=== PATIENT | female | born 1985 | race American Indian/Alaskan Native ===

== ENCOUNTER 2021-05-25 12:15 | Emergency (ER) | payer MEDICARE ==
[2021-05-25] MEDS ORDERED: KETOROLAC 60 MG/2 ML INJ IM ONE (17:09)
[2021-05-25] MEDS ORDERED: ONDANSETRON 4 MG ODT TAB PO ONE (17:09)
[2021-05-25] MEDS ORDERED: MORPHINE 4 MG/1 ML INJ IM ONE (17:09)
--- NOTE | 2021-05-25 17:10 | Emergency Department Report ---
ED Back Pain/Injury HPI - General Chief Complaint: Back Pain/Injury Stated Complaint: BACK PAIN Time Seen by Provider: 05/25/21 16:58 Source: patient Limitations: No Limitations - History of Present Illness Initial Comments: 36-year-old -[place] female, morbidly obese with a past medical history of chronic low back pain, sciatica, diabetes, asthma, bipolar disorder, and PE diagnosed about 5 years ago, currently not compliant with his Xarelto x5 months presents to the ER today with complaints of a flareup of her low back pain. Patient states that she was cleaning the bathroom this morning, and after clean the bathroom she started having increasing low back pain. She describes the pain as a "lightning jaquan which shoots down into her both legs. She states that the pain is worse with any movement and with palpation. She reports difficulty walking secondary to the pain but no lower extremity weakness, no lower extremity numbness, tingling, saddle anesthesia, bowel or bladder incontinence, fever or chills. She reports no associated chest pain, abdominal pain, UTI symptoms with it. She states that she has been seen her primary care doctor for this back pain. She states that she recently completed physical therapy and she has a follow-up with him to determine the next course of Marlon action. She has not had an MRI of her low back nor seen a orthospine specialist. MD Complaint: back pain -: Gradual, This morning - Related Data Previous Rx's Medication Instructions Recorded Last Taken Type traMADoL [Ultram] 50 mg PO Q6HR PRN #20 tablet 12/25/15 Unknown Rx Acetaminophen/Codeine [Tylenol 1 tab PO Q6H PRN #12 tab 05/25/21 Unknown Rx /Codeine # 3 tab] Ibuprofen [Motrin] 400 mg PO Q8H PRN #30 tablet 05/25/21 Unknown Rx Lidocaine [Lidoderm] 1 each TP Q12H #12 adh..patch 05/25/21 Unknown Rx methOCARBAMOL [Robaxin TAB] 500 mg PO Q6H PRN #30 tablet 05/25/21 Unknown Rx Allergies Allergy/AdvReac Type Severity Reaction Status Date / Time salami Allergy Hives Uncoded 02/23/15 19:26 ED Review of Systems ROS: Stated complaint: BACK PAIN Other details as noted in HPI Comment: All other systems reviewed and negative Constitutional: denies: chills, fever Eyes: denies: eye pain, eye discharge, vision change ENT: denies: ear pain, throat pain Respiratory: denies: cough, shortness of breath, SOB with exertion, SOB at rest, wheezing Cardiovascular: denies: chest pain, palpitations, dyspnea on exertion, edema, syncope, paroxysmal nocturnal dyspnea Endocrine: no symptoms reported Gastrointestinal: denies: abdominal pain, nausea, vomiting, diarrhea, constipation, hematemesis, hematochezia Genitourinary: denies: urgency, dysuria, discharge Musculoskeletal: back pain Skin: denies: rash, lesions, change in color, change in hair/nails, pruritus Neurological: denies: headache, weakness, numbness, paresthesias, abnormal gait, vertigo Psychiatric: denies: anxiety, depression, auditory hallucinations, visual hallucinations, homicidal thoughts, suicidal thoughts, other Hematological/Lymphatic: denies: easy bleeding, easy bruising, swollen glands ED Past Medical Hx - Past Medical History Previous Medical History?: Yes Hx Hypertension: Yes Hx Pulmonary Embolism: Yes Hx GERD: Yes Hx Asthma: Yes Hx COPD: No - Surgical History Past Surgical History?: Yes Additional Surgical History: 2 c sections - Social History Smoking Status: Never Smoker Substance Use Type: None - Medications Home Medications: Home Medications Medication Instructions Recorded Confirmed Last Taken Type traMADoL [Ultram] 50 mg PO Q6HR PRN #20 tablet 12/25/15 Unknown Rx Acetaminophen/Codeine [Tylenol 1 tab PO Q6H PRN #12 tab 05/25/21 Unknown Rx /Codeine # 3 tab] Ibuprofen [Motrin] 400 mg PO Q8H PRN #30 tablet 05/25/21 Unknown Rx Lidocaine [Lidoderm] 1 each TP Q12H #12 adh..patch 05/25/21 Unknown Rx methOCARBAMOL [Robaxin TAB] 500 mg PO Q6H PRN #30 tablet 05/25/21 Unknown Rx ED Physical Exam - General Limitations: No Limitations General appearance: alert, in distress (Patient appears uncomfortable secondary to pain), obese - Head Head exam: Present: atraumatic, normocephalic, normal inspection - Eye Eye exam: Present: normal appearance, PERRL, EOMI Pupils: Present: normal accommodation - Respiratory Respiratory exam: Present: normal lung sounds bilaterally. Absent: respiratory distress, wheezes, rales, rhonchi - Cardiovascular Cardiovascular Exam: Present: regular rate, normal rhythm, normal heart sounds - GI/Abdominal GI/Abdominal exam: Present: soft. Absent: distended, tenderness, guarding, rebound - Extremities Exam Extremities exam: Present: normal inspection, full ROM, normal capillary refill. Absent: pedal edema, calf tenderness - Back Exam Back exam: Present: normal inspection, paraspinal tenderness (Lumbar area), vertebral tenderness (Lumbar area). Absent: full ROM (Range of motion of the lumbar spine decreased secondary to pain), CVA tenderness (R), CVA tenderness (L) - Neurological Exam Neurological exam: Present: alert, oriented X3, CN II-XII intact. Absent: motor sensory deficit - Psychiatric Psychiatric exam: Present: normal affect, normal mood - Skin Skin exam: Present: intact ED Course Vital Signs 05/25/21 05/25/21 05/25/21 14:34 18:01 20:21 Temperature 98.0 F 98.2 F Pulse Rate 79 65 Respiratory 20 14 20 Rate Blood Pressure 149/103 Blood Pressure 150/99 [Right] O2 Sat by Pulse 100 100 Oximetry ED Medical Decision Making - Medical Decision Making The patient presented with what sounds like exacerbation of her chronic low back pain/sciatica. The patient is now resting comfortably and feels better, is alert, talkative, interactive and in no distress. The patient is neurologically intact. The patient has no fever, no bowel or bladder incontinence, no saddle anesthesia and is otherwise alert and well-appearing. Her history, and physical examination does not suggest the presence of acute spinal epidural abscess, acute epidural bleed, cauda equina syndrome, abdominal/thoracic aortic aneurysm, aortic dissection or other acute process requiring further testing, treatment or consultation in the emergency department. She is hemodynamically stable. Discussed suspected diagnosis and treatment plan with patient the patient condition is stable and appropriate for discharge. The patient will pursue further outpatient evaluation with the primary care physician or other designated or consulting physician as indicated in the discharge instructions. Critical care attestation.: If time is entered above; I have spent that time in minutes in the direct care of this critically ill patient, excluding procedure time. ED Disposition Clinical Impression: Acute exacerbation of chronic low back pain, Sciatica Disposition: HOME / SELF CARE / HOMELESS Is pt being admited?: No Does the pt Need Aspirin: No Condition: Stable Instructions: Sciatica, [id number], Chronic Back Pain, [id number] Additional Instructions: I recommend that you take the Tylenol threes, the Robaxin, the Motrin and use the lidocaine patches as prescribed. I recommend follow-up with your primary care doctor next week. Referral to local orthospine specialist will also be given to you on your discharge instructions. Return to the ER if your symptoms worsens. Prescriptions: Lidocaine [Lidoderm] 1 each TP Q12H #12 adh..patch Ibuprofen [Motrin] 400 mg PO Q8H PRN #30 tablet PRN Reason: pain methOCARBAMOL [Robaxin TAB] 500 mg PO Q6H PRN #30 tablet PRN Reason: Muscle Spasm Acetaminophen/Codeine [Tylenol /Codeine # 3 tab] 1 tab PO Q6H PRN #12 tab PRN Reason: Pain , Severe (7-10) Referrals: PRIMARY CARE, [Primary Care Provider] - 3-5 Days [facility] [Provider Group] - 3-5 Days Forms: Accompanied Note Time of Disposition: 19:09
[2021-05-25 20:22] VITALS: BP 150/99
== END 2021-05-25 20:24 | disposition home or self-care (01) ==
LOC: ED 12:15
DX: M54.50 Low back pain, unspecified (principal); M54.30 Sciatica, unspecified side; I10 Essential (primary) hypertension; J45.909 Unspecified asthma, uncomplicated; Z91.018 Allergy to other foods
CPT/HCPCS: 96372; 99282; J1885; J2270; J3490; Q0162